=== PATIENT | male | born 1965 | race Caucasian/White ===

== ENCOUNTER 2022-09-13 14:45 | Emergency (ER) | payer BC ==
[2022-09-13 17:00] LABS: CORONAVIRUS COVID-19 NAA NEGATIVE (NEGATIVE); INFLUENZA A NAA NEGATIVE (NEGATIVE); INFLUENZA B NAA NEGATIVE (NEGATIVE)
[2022-09-13] MEDS ORDERED: Sodium Chloride 0.9% 1,000 ML IV ONE (17:39)
[2022-09-13] MEDS ORDERED: Ondansetron 4 MG/2 ML SDV IVPUSH ONE (17:39)
[2022-09-13] MEDS ORDERED: Ketorolac 30 MG/ML SDV IVPUSH ONE (17:40)
[2022-09-13 18:35] LABS: CARBON DIOXIDE,CO2 28.4 mmol/L (21.0-32.0); POTASSIUM,K 3.9 mmol/L (3.5-5.1)
== END 2022-09-13 20:28 | disposition home or self-care (01) ==
LOC: MW.ED 14:45
DX: R07.9 Chest pain, unspecified (principal); R10.9 Unspecified abdominal pain; R11.10 Vomiting, unspecified; R19.7 Diarrhea, unspecified; Z20.822 Contact with and (suspected) exposure to COVID-19
CPT/HCPCS: 0240U; 36415; 71045; 76705; 80053; 81001; 83690; 84484; 85025; 93005; 96361; 96374; 96375; 99285; J1885; J2405; J7030

== ENCOUNTER 2023-12-21 09:12 | Day surgery (SDC) | payer BC ==
[~2023-12-21 09:12] MED LIST: propofoL 50 ML ONE
[2023-12-21] MEDS: Lactated Ringers 1,000 ML IV SCH (09:43)
== END 2023-12-21 11:30 | disposition home or self-care (01) ==
LOC: MW.SDS 09:12
PROVIDERS: ATTEND Surgery
DX: Z12.11 Encounter for screening for malignant neoplasm of colon (principal); D12.6 Benign neoplasm of colon, unspecified; Z86.010 Personal history of colon polyps; I10 Essential (primary) hypertension; K21.9 Gastro-esophageal reflux disease without esophagitis; Z87.891 Personal history of nicotine dependence; Z79.899 Other long term (current) drug therapy
CPT/HCPCS: 45380; 45381; J2704; J7120; 00811